=== PATIENT | female | born 1980 | race Caucasian/White ===

== ENCOUNTER 2024-12-19 04:10 | Inpatient (IN) | payer SELFPAY ==
[2024-12-19 04:14] VITALS: BP 143/84; PULSE 116; RESP 18; TEMP 36.8; O2SAT 95; BMI 41.1
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
[2024-12-19 04:43] LABS: Hematocrit 38.7 % (36-47); Hemoglobin 13.20 g/dL (11.27-16.99); Mean Corpuscular HGB Conc 34.1 g/dL (30-55); Mean Corpuscular Hemoglobin 27.4 pg (27-33); Mean Corpuscular Volume 80.3 fl (85-98); Nucleated Red Blood Cells % 0 %; Platelet Count 265 10^3/cmm (157-399); Red Blood Count 4.82 10^6/uL (3.85-5.65); White Blood Count 9.09 10^3/uL (3.29-11.43)
--- NOTE | 2024-12-19 04:43 | PC.NURSE ---
96 Hour Involuntary Hold Patient Rights have been reviewed with patient and a copy of the same has been provided to her. Pleat Patternmaker Naun was present at bedside during presentation of Rights.
[2024-12-19 05:03] LABS: Alanine Aminotransferase 22 U/L (0-33); Albumin Level 3.8 g/dL (3.5-5.2); Alkaline Phosphatase 77 U/L (35-105); Anion Gap 16.5 (5-19); Aspartate Amino Transferase 16 U/L (0-32); Blood Urea Nitrogen 14 mg/dL (6-20); Calcium 9.0 mg/dL (8.5-10.5); Carbon Dioxide 22 mmol/L (22-29); Chloride 108 mmol/L (98-107); Creatinine Clr Calc Pharmacy 157.4021; Globulin 3.0 g/dL (1.3-4.6); Glucose 118 mg/dL (65-115); Osmolality Calculated 298 mOsm/kg (285-295); Potassium 3.5 mmol/L (3.5-5.1); Salicylate 0.5 mg/dL (3-10); Sodium 143 mmol/L (136-145); Total Protein 6.8 g/dL (6.6-8.7)
[2024-12-19 05:12] LABS: Acetaminophen < 5.0 ug/mL (10-30)
[2024-12-19 05:30] VITALS: BP 129/82; PULSE 94; O2SAT 96
[2024-12-19 05:35] VITALS: BP 128/82; PULSE 94; O2SAT 96
[2024-12-19] MEDS: diphenhydrAMINE 50 mg/mL SDV 1mL IM (06:56)
[2024-12-19] MEDS: haloperidol inj 5 mg/mL INJ 1 mL IM (06:57)
[2024-12-19] MEDS: LORazepam 1 MG/0.5 ML injection 2 MG IM (06:59)
[2024-12-19 07:05] LABS: Alcohol Level < 10 mg/dL (0-10)
[2024-12-19 07:08] LABS: PCP Screen Urine Negative (Negative)
[2024-12-19 07:24] LABS: Glucose Urine UA Negative (Normal); Nitrate Urine Negative (Negative)
[2024-12-19 07:29] LABS: Add Urine Microscopic? YES
[2024-12-19 07:48] LABS: Specific Gravity, Urine 1.032 (1.005-1.030); UA Slide Review UA Slide Review Perf
--- NOTE | 2024-12-19 09:46 | PC.NURSE ---
Patient became agitated this morning during shift change. She was shaking her arms, yelling out and attempting to bang head on wall. Patient is requesting ativan, Klonopin and xanax. She states that she wants us to call [facility] and verify with them that she is a current customer there and received methadone. Spooke with Ernesto Medellin at [facility]. He verified that patients received methadone 110 mg daily and she had missed yesterday appointment. Patient received Haldol 5 mg IM and lorazepam 2 mg IM left upper deltoid and diphenhydramine 50 mg IM right upper deltoid. Patient tolerated well. Physician notified.
[2024-12-19 14:00] VITALS: BP 151/60; PULSE 116; RESP 16; TEMP 36.3; O2SAT 98
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
[2024-12-19 15:49] VITALS: RESP 18
--- NOTE | 2024-12-19 17:13 | PC.OT ---
HOLD OT EVALUATION DUE TO AGITATION; WILL ATTEMPT AGAIN AT LATER TIME.
[2024-12-19 19:59] VITALS: BP 105/58; PULSE 89; RESP 17; TEMP 36.8; O2SAT 96
--- NOTE | 2024-12-20 00:48 | PC.NURSE ---
pt needs shower/ may need a brief. pt denied both at this time. when she gets up will follow up.
[2024-12-20 05:04] VITALS: BP 127/62; PULSE 105; RESP 18; TEMP 37.3; O2SAT 96
[2024-12-20 14:00] VITALS: BP 135/79; PULSE 99; RESP 17; TEMP 37.3; O2SAT 96
--- NOTE | 2024-12-20 16:13 | P.NPUPN_ITS ---
Subjective NPU 2 Subjective: Patient presented today again lobbying to be discharged sooner rather than later. She continued to identify her son as a reason for her needing to leave now stating that his birthday is tomorrow and she even asked if there was a way she can do it they passed that she promises to return. We discussed the fact that she is on a 96-hour hold when she discharges she will then be able to not return unless she would desire to do so. We discussed the fact that this combination of medication is challenging and she did not identified which was confirmed that she takes Ambien for sleep on top of all of those things. Alluded to the fact that maybe she did not take all those medications all the time and handed to a nefarious possibility. However she reports that she is feeling better now that the methadone was restarted and reports that she had been off of her medication a little bit longer because of going to custodial briefly. She denied any side effects to the medication. Mental Status Exam 2 MSE Comments: This is an obese versus morbidly obese white female in hospital scrubs with poor grooming somewhat disheveled with appropriate eye contact. No abnormal movements except for psychomotor agitation. Somewhat cooperative with exam in mild to moderate distress. Speech was slightly increased rate and normal volume. Mood described as fine, affect congruent but slightly agitated. Thought process linear. Thought content: Patient denies suicidal or homicidal ideation, there were no delusions reported or noted, she denied any auditory or visual hallucinations. Attention and concentration were mostly intact and memory was intermittently reliable with moments that she was clearly misrepresenting facts, but no more formally tested. She is alert and oriented x 3. Insight, judgment and impulse control are impaired. Vitals/I&O/Wt Last Vital Signs Temp 99.2 F 12/20/24 14:00 Pulse 99 12/20/24 14:00 Resp 17 12/20/24 14:00 BP 135/79 12/20/24 14:00 Pulse Ox 96 12/20/24 14:00 O2 Del Method Room Air 12/20/24 14:00 Weight last 48 hrs Weight 104.326 kg Data NPU 12/19/24 04:34 12/19/24 04:34 A&P Assessment and plan 1. Suicidal ideation: 2. Benzodiazepine abuse: 3. Polypharmacy: 4. Opioid use disorder, severe, on maintenance therapy, dependence: 5. Generalized anxiety disorder: 6. Depression: Plan: This is a 44-year-old white female with a long history of mental health and addiction issues who presents on a concerning cocktail of medications including benzodiazepines, stimulants and methadone on a 96-hour hold denying it need to be here and being a resistant historian. 1. Continue current medication. Except will not be restarting benzodiazepines or stimulants. Will restart methadone and try to get to the bottom of her prescribing situation. Restarted Ambien nightly. 2. Continue every 15 minute checks for safety. 3. Encourage individual, group and milieu therapy. 4. Encourage sober living treatment after discharge at the highest level of care to which she is willing to commit. 5. Obtain collateral information. 6. Evaluate against the backdrop of the 96-hour hold. PDMP PDMP Reviewed: Not Reviewed Involuntary Hold Information 2 Hold Status: Legal Status: 96 Hour Hold Date/Time Hold Expires: 12/25/24 @ 04:25 Attestations NPU 2 Medical Necessity Statement*: Inpatient hospitalization is medically necessary and the clinically appropriate intervention at this time. We will monitor/initiate medications and make changes as indicated. Likely length of stay 4-6 days. Coding Level of Care Code Acute Code for [facility] Fwd Diagnoses Suicidal ideation R45.851 Benzodiazepine abuse F13.10 Polypharmacy Z79.899 Opioid use disorder, severe, on maintenance therapy, dependence F11.20 Generalized anxiety disorder F41.1 Depression F32.A
[2024-12-20] MEDS: LORazepam 1 MG/0.5 ML injection 2 MG IM (18:16)
[2024-12-20] MEDS: diphenhydrAMINE 50 mg/mL SDV 1mL IM (18:16)
[2024-12-20] MEDS: haloperidol inj 5 mg/mL INJ 1 mL IM (18:17)
[2024-12-20 19:36] VITALS: BP 153/81; PULSE 100; RESP 18; TEMP 37.2; O2SAT 97
[2024-12-20 21:07] VITALS: BP 153/81
--- NOTE | 2024-12-20 22:06 | PC.NURSE ---
HOME MEDICATIONS Dr. Slaughter gave this nurse a verbal order to restart pts home medications, 10mg Ambien PO and 0.2mg Clonidine PO order
[2024-12-21 06:00] VITALS: BP 112/72; PULSE 69; RESP 18; TEMP 37.2; O2SAT 98
--- NOTE | 2024-12-21 10:11 | PC.NURSE ---
Pt is riddled with anxiety, worried about her son at home, unable to cope with the situation. Pt is encouraged by nursing staff to use her coping skills. All pt's needs are met at this time.
--- NOTE | 2024-12-21 13:19 | P.NPUPN_ITS ---
Subjective NPU 2 Subjective: Patient presented today reporting that she is doing better once again lobbying to be discharged today. We continue to discussed the need to connect with her case packer and sealer and make sure her outpatient team is aware of the concerns about her current medication regimen and concerns about addiction and how it might be impacting her pursuit of medication as well as her current prescriptions. She denied any side effects to the medications she has been prescribed and we discussed the likelihood of discharge in the next 48 hours. Mental Status Exam 2 MSE Comments: This is an obese versus morbidly obese white female in hospital scrubs with poor grooming somewhat disheveled with appropriate eye contact. No abnormal movements except for psychomotor agitation. Somewhat cooperative with exam in mild to moderate distress. Speech was slightly increased rate and normal volume. Mood described as fine, affect congruent but slightly agitated. Thought process linear. Thought content: Patient denies suicidal or homicidal ideation, there were no delusions reported or noted, she denied any auditory or visual hallucinations. Attention and concentration were mostly intact and memory was intermittently reliable with moments that she was clearly misrepresenting facts, but no more formally tested. She is alert and oriented x 3. Insight, judgment and impulse control are impaired. Vitals/I&O/Wt Last Vital Signs Temp 98.4 F 12/21/24 14:00 Pulse 100 12/21/24 14:00 Resp 16 12/21/24 14:00 BP 140/68 12/21/24 14:00 Pulse Ox 96 12/21/24 14:00 O2 Del Method Room Air 12/21/24 14:00 Weight last 48 hrs Weight 104.326 kg Data NPU 12/19/24 04:34 12/19/24 04:34 A&P Assessment and plan 1. Suicidal ideation: 2. Benzodiazepine abuse: 3. Polypharmacy: 4. Opioid use disorder, severe, on maintenance therapy, dependence: 5. Generalized anxiety disorder: 6. Depression: Plan: This is a 44-year-old white female with a long history of mental health and addiction issues who presents on a concerning cocktail of medications including benzodiazepines, stimulants and methadone on a 96-hour hold denying it need to be here and being a resistant historian. 1. Continue current medication. Except will not be restarting benzodiazepines or stimulants. Will restart methadone and try to get to the bottom of her prescribing situation. Restarted Ambien nightly. 2. Continue every 15 minute checks for safety. 3. Encourage individual, group and milieu therapy. 4. Encourage sober living treatment after discharge at the highest level of care to which she is willing to commit. 5. Obtain collateral information. 6. Evaluate against the backdrop of the 96-hour hold. PDMP PDMP Reviewed: Not Reviewed Involuntary Hold Information 2 Hold Status: Legal Status: 96 Hour Hold Date/Time Hold Expires: 12/25/24 @ 04:25 Attestations NPU 2 Medical Necessity Statement*: Inpatient hospitalization is medically necessary and the clinically appropriate intervention at this time. We will monitor/initiate medications and make changes as indicated. Likely length of stay 2-4 days. Coding Level of Care Code Acute Code for [facility] Fwd Diagnoses Suicidal ideation R45.851 Benzodiazepine abuse F13.10 Polypharmacy Z79.899 Opioid use disorder, severe, on maintenance therapy, dependence F11.20 Generalized anxiety disorder F41.1 Depression F32.A
[2024-12-21 14:00] VITALS: BP 140/68; PULSE 100; RESP 16; TEMP 36.9; O2SAT 96
[2024-12-21 20:39] VITALS: BP 126/76
[2024-12-21 22:00] VITALS: BP 126/76; PULSE 86; RESP 18; TEMP 37.1; O2SAT 95
[2024-12-22 06:00] VITALS: BP 109/55; PULSE 74; RESP 18; O2SAT 96
--- NOTE | 2024-12-22 11:16 | PC.NURSE ---
prn Vistaril 50 mg given po per pt c/o stated anxiety. requesting haldol by name, staff suggested to take vistaril first for anxiety, agreed to take Vistaril at this time
--- NOTE | 2024-12-22 13:43 | P.NPUPN_ITS ---
Subjective NPU 2 Subjective: Patient presented today reporting that things are going fine. She identifies once again and interested in leaving and we discussed making sure she has Medicaid in place tomorrow as well as hearing back about collateral information obtained from her [facility] inside phone sales as far as what they would recommend with her going forward. We continued discussing the concerns of mixing benzodiazepines with her methadone. We discussed working with her for appropriate discharge planning over the next 48 hours. Mental Status Exam 2 MSE Comments: This is an obese versus morbidly obese white female in hospital scrubs with poor grooming somewhat disheveled with appropriate eye contact. No abnormal movements except for psychomotor agitation. Somewhat cooperative with exam in mild to moderate distress. Speech was slightly increased rate and normal volume. Mood described as better, affect congruent but slightly less agitated. Thought process linear. Thought content: Patient denies suicidal or homicidal ideation, there were no delusions reported or noted, she denied any auditory or visual hallucinations. Attention and concentration were mostly intact and memory was intermittently reliable with moments that she was clearly misrepresenting facts, but no more formally tested. She is alert and oriented x 3. Insight, judgment and impulse control are impaired. Vitals/I&O/Wt Last Vital Signs Temp 98.8 F 12/21/24 22:00 Pulse 74 12/22/24 06:00 Resp 18 12/22/24 06:00 BP 109/55 12/22/24 06:00 Pulse Ox 96 12/22/24 06:00 O2 Del Method Room Air 12/22/24 06:00 12/21/24 12/22/24 12/22/24 22:59 06:59 14:59 Intake Total 0 / 0 Balance 0 / 0 Weight last 48 hrs Weight 104.326 kg Data NPU 12/19/24 04:34 12/19/24 04:34 A&P Assessment and plan 1. Suicidal ideation: 2. Benzodiazepine abuse: 3. Polypharmacy: 4. Opioid use disorder, severe, on maintenance therapy, dependence: 5. Generalized anxiety disorder: 6. Depression: Plan: This is a 44-year-old white female with a long history of mental health and addiction issues who presents on a concerning cocktail of medications including benzodiazepines, stimulants and methadone on a 96-hour hold denying it need to be here and being a resistant historian. 1. Continue current medication. Except will not be restarting benzodiazepines or stimulants. Will restart methadone and try to get to the bottom of her prescribing situation. Restarted Ambien nightly. 2. Continue every 15 minute checks for safety. 3. Encourage individual, group and milieu therapy. 4. Encourage sober living treatment after discharge at the highest level of care to which she is willing to commit. 5. Obtain collateral information. 6. Evaluate against the backdrop of the 96-hour hold. PDMP PDMP Reviewed: Not Reviewed Involuntary Hold Information 2 Hold Status: Legal Status: 96 Hour Hold Date/Time Hold Expires: 12/25/24 @ 04:25 Attestations NPU 2 Medical Necessity Statement*: Inpatient hospitalization is medically necessary and the clinically appropriate intervention at this time. We will monitor/initiate medications and make changes as indicated. Likely length of stay 1-3 days. Coding Level of Care Code Acute Code for [facility] Fwd Diagnoses Suicidal ideation R45.851 Benzodiazepine abuse F13.10 Polypharmacy Z79.899 Opioid use disorder, severe, on maintenance therapy, dependence F11.20 Generalized anxiety disorder F41.1 Depression F32.A
[2024-12-22 14:00] VITALS: BP 172/92; PULSE 100; RESP 17; TEMP 37.3; O2SAT 98
--- NOTE | 2024-12-22 14:08 | PC.NURSE ---
PRN HALDOL 5 MG GIVEN PO PER PT C/O ANXIETY ASKING FOR HALDOL BY NAME
[2024-12-22 19:56] VITALS: BP 154/92; PULSE 100; RESP 16; TEMP 37.3; O2SAT 93
[2024-12-22 20:05] VITALS: BP 154/91
--- NOTE | 2024-12-23 04:56 | PC.NURSE ---
SHIFT SUMMARY PATIENT HAS RESTED THIS NIGHT WITHOUT S/S OF DISTRESS NOTED.
[2024-12-23 06:00] VITALS: BP 102/66; PULSE 86; RESP 16; TEMP 36.7; O2SAT 94
[2024-12-23 08:27] VITALS: RESP 18
[2024-12-23 12:58] VITALS: BP 136/87; PULSE 100; RESP 22; TEMP 37.1; O2SAT 94
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
[2024-12-23 15:14] VITALS: RESP 18
[2024-12-23 15:24] VITALS: BP 136/87; PULSE 22; RESP 100; TEMP 37.1; O2SAT 94
== END 2024-12-23 15:25 | disposition home or self-care (01) | DRG 897 ==
LOC: ER 04:54 → NP 05:02
PROVIDERS: Admitting Provider Psychiatry & Neurology Psychiatry; Emergency Provider Family Medicine; Visit Provider Psychiatry & Neurology Psychiatry
DX: F13.10 Sedative, hypnotic or anxiolytic abuse, uncomplicated (principal); R45.851 Suicidal ideations; Z68.41 Body mass index [BMI] 40.0-44.9, adult; F11.20 Opioid dependence, uncomplicated; E66.01 Morbid (severe) obesity due to excess calories; F41.1 Generalized anxiety disorder; G47.00 Insomnia, unspecified; Z63.0 Problems in relationship with spouse or partner; F32.A Depression, unspecified; Z79.899 Other long term (current) drug therapy
CPT/HCPCS: 36415; 80053; 80306; 80307; 81001; 85025; 96372; 97150; 97165; 99285; J1200; J1630; J2060; J9999

== ENCOUNTER 2024-12-27 09:21 | Inpatient (IN) | payer OTHER, SELFPAY ==
--- OUTSIDE RECORDS SUMMARY | 2013-07-14 03:37 | XMS_ITS | Continuity of Care Document ---
Author Organization DONTA Fritz Address [address] [place] [address] Phone Care Team Providers Care Baker Paint Name Role Phone Unavailable Unavailable Unavailable Procedures Procedure Date Offic/outpt E&m Estab Mod-hi 2 07 Offic/outpt E&m Estab Mod-hi 2 07 Offic/outpt E&m Estab Mod-hi 2 07 Offic/outpt E&m Estab Mod-hi 2 07 Subsqt Hosp-da E&m Minr Compl 6 Init Inpt Cons New/estab Mod 5 06 Advance Directives Directive Yes / No Effective Date File Name No Information Encounters Encounter Description Practice Location Reason(s) For Visit Diagnoses Date Provider Providers Copied on Encounter DONTA Fritz, [address], [place], [place], [id number], tel:[phone] [facility] No Information 1 4 No Information Referring Provider: Shauna Arteaga MD, [address], [address]. tel:[phone] Offic/outpt E&m Estab Mod-hi 2 DONTA Fritz, [address], [place], [address], tel:[phone] [facility] No Information 7 [facility]. [address], [address], [place], [address], [place]. tel:[phone] Referring Provider: Shauna Arteaga MD, [address], [address]. tel:[phone] Offic/outpt E&m Estab Mod-hi 2 Lam, [facility], [address], [place], [address], [place] tel:[phone] [facility] No Information 7 Sandy [employer]ICAL [employer]ACH[employer]IC[employer] Erv. [address], [place], [address], [place]. tel:[phone] Referring Provider: Shauna Arteaga MD, [address], [address]. 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 [address], [address], [place], [address], [place]. tel:[phone] Referring Provider: Shauna Arteaga MD, [address], [address]. tel:[phone] Offic/outpt E&m Estab Mod-hi 2 Lam, [facility], [address] [facility] [address], [place], [address], [place] tel:[phone] [facility] No Information Luciano Nunn. [address], [address], [place], [address], [place]. tel:[phone] Referring Provider: Shauna Arteaga MD, [address], [address]. tel:[phone] Subsqt Hosp-da E&m Minr Compl Lam, [facility], [address], [place], [place], [address], [place] tel:[phone] [facility] - [facility] No Information 6 Tomshine Arline. [address], [address], [place], [address], [place]. tel:[phone] Referring Provider: Shauna Arteaga MD, [address], [address]. tel:[phone] Init Inpt Cons New/estab Mod 5 Lam, [facility], [address], [place], [place], [address], [place] tel:[phone] [facility] - [place] No Information 6 Tomshine Arline. [address], [place], [address], [place]. tel:[phone] Referring Provider: Shauna Arteaga MD, [address], [address]. tel:[phone] Family History Family Member Type Diagnosis Age At Onset No Information Payers Payer name Insurance type Covered constitution party ID Shamika catalan(s) Medical Assistance [facility] [id number] Social History Type Description Quantity Date Captured Comments Sex Female Smoking Status No Information Chief Complaint And Reason For Visit No Information Reason For Referral Reason For Referral No Information History Of Present Illness Encounter Date Complaint History Of Prese nt Illness No Information Functional Status Date Functional Assessmen t No Information Instructions Date Instruction Additional Infor mation No Information Assessments Type Assessment Date No Information Patient Care Teams Name Effective Dates (start - stop) Status Members No Information
[2024-12-27] VITALS (7 sets, daily range): BP systolic 100–152; BP diastolic 65–101; PULSE 90–110; RESP 16–22; TEMP 36.5–36.8; O2SAT 95–100
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
--- NOTE | 2024-12-27 09:29 | ECG_ITS ---
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 Measurements Intervals [place] Rate: 107 P: 58 NM: 133 QRS: 44 QRSD: 89 T: 26 QT: 339 QTc: 453 Interpretive Statements SINUS TACHYCARDIA NONSPECIFIC ST & T-WAVE ABNORMALITY ABNORMAL RHYTHM ECG No previous ECG available for comparison Electronically Signed On 12-27-2024 20:33:01 CDT by Sree Betts M.D. [email or web address]
[2024-12-27 09:36] LABS: Hematocrit 40.9 % (36-47); Hemoglobin 13.90 g/dL (11.27-16.99); Mean Corpuscular HGB Conc 34.0 g/dL (30-55); Mean Corpuscular Hemoglobin 27.2 pg (27-33); Mean Corpuscular Volume 80.0 fl (85-98); Nucleated Red Blood Cells % 0 %; Platelet Count 297 10^3/cmm (157-399); Red Blood Count 5.11 10^6/uL (3.85-5.65); White Blood Count 6.11 10^3/uL (3.29-11.43)
--- NOTE | 2024-12-27 09:38 | XRR_ITS ---
PROCEDURE INFORMATION: Exam: XR Chest Exam date and time: 12/27/2024 9:47 AM Age: 44 years old Clinical indication: Dyspnea; Additional info: Dyspnea/cough TECHNIQUE: Imaging protocol: Radiologic exam of the chest. Views: 1 view. COMPARISON: No relevant prior studies available. FINDINGS: Tubes, catheters and devices: EKG leads. Lungs: Unremarkable. No consolidation. Pleural spaces: Unremarkable. No pleural effusion. No pneumothorax. Heart/Mediastinum: Unremarkable. No cardiomegaly. Vasculature: Aortic tortuosity without suspected aneurysm. Bones/joints: Unremarkable. XR/XR chest 1V portable [id number] IMPRESSION: No evidence of acute cardiopulmonary pathology.
--- NOTE | 2024-12-27 09:39 | CTR_ITS ---
PROCEDURE INFORMATION: Exam: CT Head Without Contrast Exam date and time: 12/27/2024 10:13 AM Age: 44 years old Clinical indication: Altered mental status/memory loss; Additional info: AMS TECHNIQUE: Imaging protocol: Computed tomography of the head without contrast. Radiation optimization: All CT scans at this facility use at least one of these dose optimization techniques: automated exposure control; mA and/or kV adjustment per patient size (includes targeted exams where dose is matched to clinical indication); or iterative reconstruction. COMPARISON: No relevant prior studies available. RADIATION DOSE METRICS: Total DLP (mGy-cm): 1148.64 FINDINGS: Brain: Normal. No hemorrhage. Unremarkable white matter. No mass effect. Cerebral ventricles: No ventriculomegaly. Paranasal sinuses: Visualized sinuses are unremarkable. No fluid levels. Mastoid air cells: Visualized mastoid air cells are well aerated. Bones: Unremarkable. No acute fracture. Soft tissues: Unremarkable. CT/CT head wo con* [id number] IMPRESSION: Unremarkable noncontrast head CT.
[2024-12-27 09:56] LABS: Alanine Aminotransferase 33 U/L (0-33); Albumin Level 4.1 g/dL (3.5-5.2); Alkaline Phosphatase 89 U/L (35-105); Anion Gap 18.4 (5-19); Aspartate Amino Transferase 25 U/L (0-32); Blood Urea Nitrogen 13 mg/dL (6-20); Calcium 9.5 mg/dL (8.5-10.5); Carbon Dioxide 20 mmol/L (22-29); Chloride 107 mmol/L (98-107); Creatinine Clr Calc Pharmacy 93.8947; Globulin 3.3 g/dL (1.3-4.6); Glucose 103 mg/dL (65-115); Osmolality Calculated 294 mOsm/kg (285-295); Potassium 3.4 mmol/L (3.5-5.1); Salicylate 1.6 mg/dL (3-10); Sodium 142 mmol/L (136-145); Total Protein 7.4 g/dL (6.6-8.7)
[2024-12-27 09:58] LABS: Acetaminophen < 5.0 ug/mL (10-30); Alcohol Level < 10 mg/dL (0-10)
[2024-12-27 10:10] LABS: PCP Screen Urine Negative (Negative)
[2024-12-27 10:11] LABS: ABG PCO2 39.5 mmHg (35-45); ABG PH Result 7.36 (7.35-7.45); Alveolar-Arterial Oxygen Gradi 4.1 mmHg (5-10); Arterial Blood Gas Hematocrit 43.8 % (37-47); Blood Gas Operator Identificat AMH; Blood Gas Sample Site Brachial, right; Blood Gas Sample Type Arterial; Carboxyhemoglobin 1.2 %THgb (0.4-20.1); Glucose Level-ABG 100.0 mg/dL (70-115); HCO3 ABG 22.4 mmol/L (22-26); Ionized Calcium Level - ABG 1.2 mmol/L (1.1-1.4); Methemoglobin 0.7 % (0.4-1.5); Oxygen Saturation ABG 95.2; PO2 ABG 69.5 mmHg (80.0-100.0); PO2 FiO2 Ratio Arterial Blood 330; Potassium Level - ABG 3.5 mmol/L (3.5-5.0); Sodium Level - ABG 143.0 mmol/L (131-143)
[2024-12-27] MEDS: LORazepam 1 MG/0.5 ML injection IVP (11:29)
[2024-12-27] MEDS: LORazepam 1 MG/0.5 ML injection 2 MG IVP (11:55)
--- NOTE | 2024-12-27 12:21 | PC.NURSE ---
While in the room with the pt, the pt stated that she was having hallucinations and that she thought she was in [place] not in [place]. Pt also stated that she took fentanyl and meth this morning.
--- NOTE | 2024-12-27 12:53 | PC.NURSE ---
pt was read her 96 hour hold rights. security was present
[2024-12-28 06:00] VITALS: BP 121/78; PULSE 99; RESP 18; TEMP 37.4; O2SAT 99
--- NOTE | 2024-12-28 07:49 | PC.NURSE ---
Addendum entered by Disha Scott LPN 12/28/24 09:09: prn med effective no further c/o anxiety. pt asleep in bed in room, snoring. resp even et unlabored Original Note: prn Vistaril 50 mg given po per pt c/o stated anxiety. no outward s/s of anxiety noted. pt med seeking for any and all prn meds she can have
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
--- NOTE | 2024-12-28 12:17 | PC.NURSE ---
prn haldol 5 mg given po per pt c/o stated anxiety/agitation. med seeking
[2024-12-28 14:00] VITALS: BP 132/83; PULSE 103; RESP 17; TEMP 37.4; O2SAT 97
--- NOTE | 2024-12-28 15:55 | PC.NURSE ---
PRN VISTARIL 50 MG GIVEN PO PER PT C/O STATED ANXIETY. NO OUTWARD S/SO OF ANXIETY NOTED, MED SEEKING BEHAVIORS NOTED. PATIENT WAS PREVIOUSLY VISITING IN DAY ROOM, SMILING AND LAUGHING WITH VISITOR. SOON VISITOR LEFT UNIT, PATIENT UP TO DESK C/O ANXIETY
[2024-12-28 20:02] VITALS: BP 116/68; PULSE 103; RESP 18; TEMP 37.1; O2SAT 97
[2024-12-29 06:00] VITALS: BP 120/70; PULSE 72; RESP 18; TEMP 37.2; O2SAT 97
[2024-12-29 08:00] VITALS: RESP 18
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
[2024-12-29 14:00] VITALS: BP 113/71; PULSE 92; RESP 18; TEMP 37.1; O2SAT 95
[2024-12-29 20:30] VITALS: BP 138/89; PULSE 106; RESP 19; TEMP 37; O2SAT 97
[2024-12-30 05:21] VITALS: BP 99/65; PULSE 97; RESP 18; TEMP 36.9; O2SAT 93
[2024-12-30] MEDS: diphenhydrAMINE 50 mg/mL SDV 1mL IM ×2 (07:37→21:33)
[2024-12-30] MEDS: LORazepam 1 MG/0.5 ML injection 2 MG IM ×2 (07:37→21:28)
--- NOTE | 2024-12-30 07:43 | PC.NURSE ---
Pt came to the nurses station stating she has diarrhea and it is a lot and straight water. I gave pt Pepto (see MAR). She shortly came up and asked for a shot for anxiety. She stated that she was really having a hard time, especially with all the diarrhea. She had already has a PO Haldol and wasn't getting any effects from it. After talking with Apple ZHENG we decided to give Ativan 2mg IM and Benadryl 50mg IM since pt is having so much diarrhea. She also didn't sleep much last night. It was felt this would absorb better and help her longer.
[2024-12-30 08:13] VITALS: RESP 18
--- NOTE | 2024-12-30 09:24 | NUR.SHIFT ---
Pt states that she didn't sleep good last night. She has had watery diarrhea all morning again. She has already received pepto (see mar)She became very anxious and then recieved some injections. She rates her anxiety a 5/10 and Depression 0/10. No reports of SI/HI or hallucinations. No pain reported. She was cooperative for assessment.
--- NOTE | 2024-12-30 13:50 | P.NPUPN_ITS ---
Subjective NPU 2 Subjective: Patient presented today reporting that she is feeling better. We discussed her continued concerns about her addictive behaviors and different story lines for what has occurred. She continues to endorse a plan to move home to [place] at the first opportunity she has 2 get her things and go. We discussed the importance of continued treatment for both her mental health and addiction issues. She denied any side effects to her medication. Mental Status Exam 2 MSE Comments: This is an obese versus morbidly obese white female in hospital scrubs adequate grooming and appropriate eye contact. No abnormal movements except for mild psychomotor agitation. Mostly cooperative with exam in mild distress. Speech was slightly increased rate and normal volume. Mood described as I rather go today but I am glad that I will be leaving, affect congruent. Thought process linear. Thought content: Patient denies suicidal or homicidal ideation, there were no delusions reported or noted, she denied any auditory or visual hallucinations. Attention and concentration were mostly intact and memory was intermittently reliable with moments that she was clearly misrepresenting facts, but none were formally tested. She is alert and oriented x 3. Insight, judgment and impulse control are impaired. Vitals/I&O/Wt Last Vital Signs Temp 98.5 F 12/30/24 19:50 Pulse 95 12/30/24 19:50 Resp 18 12/30/24 19:50 BP 118/83 12/30/24 19:50 Pulse Ox 98 12/30/24 19:50 O2 Del Method Room Air 12/30/24 19:50 Data NPU 12/27/24 09:31 12/27/24 09:31 A&P Assessment and plan 1. Suicidal ideation: 2. Benzodiazepine abuse: 3. Polypharmacy: 4. Opioid use disorder, severe, on maintenance therapy, dependence: 5. Generalized anxiety disorder: 6. Depression: Plan: This is a 44-year-old white female with a long history of mental health and addiction issues who was just discharged on 12/23/2024 with similar concerns and presents again on a concerning cocktail of medications including benzodiazepines, stimulants and methadone as she was not continued on her last hospitalization with those medications but does have prescriptions for them in the pharmacy again on a 96-hour hold denying it need to be here and being a resistant historian. 1. Continue current medication as she was discharged on on 12/23/2024. 2. Continue every 15 minute checks for safety. 3. Encourage individual, group and milieu therapy. 4. Encourage sober living treatment after discharge at the highest level of care to which she is willing to commit. 5. Obtain collateral information. 6. Evaluate against the backdrop of the 96-hour hold. Tentative plan for discharge tomorrow. PDMP PDMP Reviewed: Not Reviewed Involuntary Hold Information 2 Hold Status: Legal Status: 96 Hour Hold Date/Time Hold Expires: 0 01/02/25@00:01 Attestations NPU 2 Medical Necessity Statement*: Inpatient hospitalization is medically necessary and the clinically appropriate intervention at this time. We will monitor/initiate medications and make changes as indicated. Likely length of stay 1-3 days. Coding Level of Care Code Acute Code for [facility] Fwd Diagnoses Suicidal ideation R45.851 Benzodiazepine abuse F13.10 Polypharmacy Z79.899 Opioid use disorder, severe, on maintenance therapy, dependence F11.20 Generalized anxiety disorder F41.1 Depression F32.A
[2024-12-30 14:00] VITALS: BP 113/77; PULSE 94; RESP 18; TEMP 36.7; O2SAT 99
[2024-12-30 19:50] VITALS: BP 118/83; PULSE 95; RESP 18; TEMP 36.9; O2SAT 98
[2024-12-30] MEDS: haloperidol inj 5 mg/mL INJ 1 mL IM (21:30)
[2024-12-31 06:00] VITALS: BP 112/72; PULSE 68; RESP 18; TEMP 36.9; O2SAT 98
[2024-12-31 08:05] VITALS: RESP 18
--- NOTE | 2024-12-31 08:33 | W.PM.NPUDCS ---
Diagnoses at Discharge Discharge Diagnosis 1. Suicidal ideation: 2. Benzodiazepine abuse: 3. Polypharmacy: 4. Opioid use disorder, severe, on maintenance therapy, dependence: 5. Generalized anxiety disorder: 6. Depression: Reason for Visit Reason for Visit: ams Involuntary Hold Information Hold Status: Legal Status: 96 Hour Hold Date/Time Hold Expires: 01/02/25@00:01 Mental Status Exam MSE Comments: This is an obese versus morbidly obese white female in hospital scrubs adequate grooming and appropriate eye contact. No abnormal movements except for mild psychomotor agitation. Mostly cooperative with exam in mild distress. Speech was slightly increased rate and normal volume. Mood described as I rather go today but I am glad that I will be leaving, affect congruent. Thought process linear. Thought content: Patient denies suicidal or homicidal ideation, there were no delusions reported or noted, she denied any auditory or visual hallucinations. Attention and concentration were mostly intact and memory was intermittently reliable with moments that she was clearly misrepresenting facts, but none were formally tested. She is alert and oriented x 3. Insight, judgment and impulse control are impaired. Discharge Data Studies Completed and Pending: Completed Studies During Hospitalization Category Date Time Status CT head wo con* [id number] Stat Cat Scan 12/27/24 09:39 Completed XR chest 1V anay ble [id number] Stat Exams 12/27/24 09:38 Completed Radiology Impressions Chest X-Ray 12/27/24 09:38 IMPRESSION: No evidence of acute cardiopulmonary pathology. Head CT 12/27/24 09:39 IMPRESSION: Unremarkable noncontrast head CT. Laboratory Results WBC 6.11 10^3/uL (3.2 9-11.43) 12/27/24 09:31 RBC 5.11 10^6/uL (3.8 5-5.65) 12/27/24 09:31 Hgb 13.90 g/dL (11.27 -16.99) 12/27/24 09:31 Hct 40.9 % (36-47) 12/27/24 09:31 MCV 80.0 fl (85-98) L 12/27/24 09:31 MCH 27.2 pg (27-33) 12/27/24 09:31 MCHC 34.0 g/dL (30-55) 12/27/24 09:31 RDW 14.5 % (12.1-15.1 ) 12/27/24 09:31 Plt Count 297 10^3/cmm (157 -399) 12/27/24 09:31 MPV 9.8 fL (7.4-10.4) 12/27/24 09:31 Neut % (Auto) 50.1 % 12/27/24 09: Lymph % (Auto) 35.4 % 12/27/24 09:31 Grimes % (Auto) 9.7 % 12/27/24 09:31 Eos % (Auto) 4.3 % 12/27/24 09:31 Baso % (Auto) 0.3 % 12/27/24 09: Neut # (Auto) 3.07 10^3/uL (1.8 -7.7) 12/27/24 09: Lymph # (Auto) 2.2 10^3/uL (0.8- 4.8) 12/27/24 09:31 Grimes # (Auto) 0.6 10^3/uL (0.2- 0.9) 12/27/24 09: Eos # (Auto) 0.3 10^3/uL (0.0- 0.8) 12/27/24 09: Baso # (Auto) 0.0 10^3/uL (0.0- 0.1) 12/27/24 09: Nucleated RBC % (a uto) 0 % 12/27/24 09: Nucleated RBCs # 0.0 /100WBC 12/27/24 09:31 Specimen Type Arterial 12/27/24 09:59 Sample Site Brachial, right 12/27/24 09:59 ABG pH 7.36 (7.35-7.45) 12/27/24 09:59 ABG pCO2 39.5 mmHg (35-45) 12/27/24 09:59 ABG pO2 69.5 mmHg (80.0-1 00.0) L 12/27/24 09:59 ABG PO2/FiO2 Ratio 330 12/27/24 09:59 ABG HCO3 22.4 mmol/L (22-2 6) 12/27/24 09:59 ABG O2 Saturation 95.2 12/27/24 09:59 ABG Base Excess -2.8 mmol/L (-2.0 -2.0) L 12/27/24 09:59 Nathan Test N/a 12/27/24 09:59 A-a O2 Gradient 4.1 mmHg (5-10) L 12/27/24 09:59 Hematocrit 43.8 % (37-47) 12/27/24 09:59 Hgb O2 Saturation 93.3 % (95-100) L 12/27/24 09:59 Carboxyhemoglobin 1.2 %THgb (0.4-20 .1) 12/27/24 09:59 Methemoglobin 0.7 % (0.4-1.5) 12/27/24 09:59 Total Hemoglobin 14.3 g/dL (12-16) 12/27/24 09:59 Sodium 143.0 mmol/L (131 -143) 12/27/24 09:59 Potassium 3.5 mmol/L (3.5-5 .0) 12/27/24 09:59 Glucose 100.0 mg/dL (70-1 15) 12/27/24 09:59 Ionized Calcium 1.2 mmol/L (1.1-1 .4) 12/27/24 09:59 O2 Delivery Device Room air 12/27/24 09:59 FiO2 21.0 % 12/27/24 09:59 Gun Mechanic ID Amh 12/27/24 09:59 Sodium 142 mmol/L (136-1 45) 12/27/24 09:31 Potassium 3.4 mmol/L (3.5-5 .1) L 12/27/24 09:31 Chloride 107 mmol/L (98-10 7) 12/27/24 09:31 Carbon Dioxide 20 mmol/L (22-29) L 12/27/24 09:31 Anion Gap 18.4 (5-19) 12/27/24 09:31 BUN 13 mg/dL (6-20) 12/27/24 09:31 Creatinine 0.8 mg/dL (0.5-0. 9) 12/27/24 09:31 GFR Calculation 77.2 mL/min (90-1 30) L 12/27/24 09:31 Glucose 103 mg/dL (65-115 ) 12/27/24 09:31 Calculated Osmolal ity 294 mOsm/kg (285- 295) 12/27/24 09:31 Calcium 9.5 mg/dL (8.5-10 .5) 12/27/24 09:31 Total Bilirubin 0.6 mg/dL (0.15-1 .2) 12/27/24 09:31 AST 25 U/L (0-32) 12/27/24 09:31 ALT 33 U/L (0-33) 12/27/24 09:31 Alkaline Phosphata se 89 U/L (35-105) 12/27/24 09:31 Total Protein 7.4 g/dL (6.6-8.7 ) 12/27/24 09:31 Albumin 4.1 g/dL (3.5-5.2 ) 12/27/24 09:31 Globulin 3.3 g/dL (1.3-4.6 ) 12/27/24 09:31 Salicylates 1.6 mg/dL (3-10) L 12/27/24 09:31 Urine Opiates Scre en Negative ng/mL (N egative) 12/27/24 09:50 Acetaminophen < 5.0 ug/mL (10-3 0) L 12/27/24 09:31 Ur Barbiturates Sc reen Negative ng/mL (N egative) 12/27/24 09:50 Ur Phencyclidine S crn Negative ng/mL (N egative) 12/27/24 09:50 Ur Amphetamines Sc reen Positive ng/mL (N egative) H 12/27/24 09:50 U Benzodiazepines Scrn Positive ng/mL (N egative) H 12/27/24 09:50 Urine Cocaine Scre en Negative ng/mL (N egative) 12/27/24 09:50 U Marijuana (THC) Screen Negative ng/mL (N egative) 12/27/24 09:50 Ethyl Alcohol < 10 mg/dL (0-10) 12/27/24 09:31 Vitals: Last Vital Signs Temp 98.4 F 12/31/24 06:00 Pulse 68 12/31/24 06:00 Resp 18 12/31/24 08:05 BP 112/72 12/31/24 06:00 Pulse Ox 98 12/31/24 06:00 O2 Del Method Room Air 12/31/24 06:00 Discharge Plan Discharge Patient Disposition: Home Condition: Stable Prescriptions: Continued clonidine HCl 0.1 mg Tablet 0.3 mg PO BEDTIME 30 Days Qty: 90 1RF olanzapine 5 mg Tablet,Disintegrating 5 mg PO DAILY PRN (Reason: Agitation/Psychosis) 30 Days Qty: 30 1RF hydroxyzine pamoate 25 mg Capsule 50 mg PO Q6H PRN (Reason: Anxiety) 30 Days Qty: 120 1RF zolpidem [Ambien] 10 mg Tablet 10 mg PO BEDTIME PRN (Reason: Insomnia) 30 Days Qty: 30 1RF methadone 10 mg Tablet 110 mg PO DAILY Qty: 1 0RF Rx Instructions: will be given by [facility] Discontinued Adderall XR capsule 30 mg PO BID ziprasidone HCl 40 mg Capsule 40 mg PO 0700,1700 PRN (Reason: extreme anxiety/agitation) 30 Days Qty: 60 1RF Discharge Order = DC NOW: Discharge Order (Routine); Ordered 12/31/24 Ordered By: Darvin Slaughter Referrals: [facility] [Outside] - 01/05/25 11:00 am Referral Note: Hospital follow up with Christine Silva Discharge Diet: Regular Discharge Activity: Resume usual activity Patient Instructions: Opioid Safety, Patient Portal & Toni Instructions Discharge Attestations NPU Time Spent in Discharge Care*: less than 30 min Specific Discharge Activities: Specific discharge activities: educating patient, discussing with wrapper caser/social workers/dc planners and documenting/other paperwork Coding Level of Care Code Acute Code for g Fwd Diagnoses Suicidal ideation R45.851 Benzodiazepine abuse F13.10 Polypharmacy Z79.899 Opioid use disorder, severe, on maintenance therapy, dependence F11.20 Generalized anxiety disorder F41.1 Depression F32.A
--- NOTE | 2024-12-31 08:39 | NUR.SHIFT ---
When pt was asked how she slept last night and she states, It was fine She rates her anxiety a 5/10 and depression 0/10. No reports of SI/Hi or hallucinations. No pain. She is calm and cooperative on assessment. She states that she has a 1pm court hearing today and we have let [facility] social work lecturer know. She is anticipating d/c today.
[2024-12-31 09:45] VITALS: BP 119/69; PULSE 94; RESP 16; O2SAT 99
== END 2024-12-31 09:58 | disposition home or self-care (01) | DRG 918 ==
LOC: ER 12:21 → NP 12:57
PROVIDERS: Admitting Provider Psychiatry & Neurology Psychiatry; Emergency Provider Family Medicine; Visit Provider Psychiatry & Neurology Psychiatry
DX: T42.4X2A Poisoning by benzodiazepines, intentional self-harm, initial encounter (principal); F23 Brief psychotic disorder; Z68.42 Body mass index [BMI] 45.0-49.9, adult; F11.20 Opioid dependence, uncomplicated; F32.A Depression, unspecified; F41.1 Generalized anxiety disorder; E66.01 Morbid (severe) obesity due to excess calories; F15.10 Other stimulant abuse, uncomplicated; F13.10 Sedative, hypnotic or anxiolytic abuse, uncomplicated; F17.210 Nicotine dependence, cigarettes, uncomplicated; Z86.19 Personal history of other infectious and parasitic diseases
CPT/HCPCS: 36415; 36600; 70450; 71045; 80051; 80053; 80306; 80307; 82330; 82805; 85025; 93005; 96372; 96374; 96375; 97150; 97165; 99285; J1200; J1630; J2060; J2312; J9999

== ENCOUNTER → 2025-01-08 14:58 | Outpatient (BNVA) | payer SELFPAY | PROVIDERS: Visit Provider Dermatology | DX: Z79.899 Other long term (current) drug therapy (principal) | CPT/HCPCS: 80061; 83036 ==

== ENCOUNTER 2025-01-18 06:22 | Emergency (ER) | payer SELFPAY ==
--- OUTSIDE RECORDS SUMMARY | 2013-07-14 03:37 | XMS_ITS | Continuity of Care Document ---
Author Organization ODNTA Fritz Address [address] [place] [address] Phone Care Team Providers Care Cable Rigger Name Role Phone Unavailable Unavailable Unavailable Procedures [...] Providers Copied on Encounter DONTA Fritz, [address], [place], [place], [address], tel:[phone] [facility] No Information 1 4 No Information Referring Provider: Shauna Arteaga MD, [address], [address]. tel:[phone] Offic/outpt E&m Estab Mod-hi 2 DONTA Fritz, [address], [place], [address], tel:[phone] [facility] No Information 7 [facility] Er[facility]. [address], [address], [address], [place]. tel:[phone] Referring Provider: Shauna Arteaga MD, [address], [address]. 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 [address], [address], [place]. tel:[phone] Referring Provider: Shauna Arteaga MD, [address], [address]. tel:[phone] Offic/outpt E&m Estab Mod-hi 2 Lam, [facility], [address] [facility] [address], [place], [address], [place] tel:[phone] [facility] No Information Renick CONTENT ADMINISTRATOR Erv. [address], [address], [place]. tel:[phone] Referring Provider: Shauna Arteaga MD, [address], [address]. tel:[phone] Offic/outpt E&m Estab Mod-hi 2 Lam, [facility], [address] [facility] [address], [place], [address], [place] tel:[phone] [facility] No Information Luciano Nunn. [address], [place], [address], [place]. tel:[phone] Referring Provider: Shauna Arteaga MD, [address], [address]. tel:[phone] Subsqt Hosp-da E&m Minr Compl Lam, [facility], [address], [place], [place], [address], [place] tel:[phone] [facility] - [facility] No Information 6 Tomshine Arline. [address], [address], [place], [address], [place]. tel:[phone] Referring Provider: Shauna Arteaga MD, [address], [address]. tel:[phone] Init Inpt Cons New/estab Mod 5 Lam, [facility], [address] [facility] [address], [place], [place], [address], [place] tel:[phone] [facility] - [place] No Information 6 Tomshine Arline. [address], [address], [place], [address], [place]. tel:[phone] Referring Provider: Shauna Arteaga MD, [address], [address]. tel:[phone] Family History Family Member Type Diagnosis Age At Onset No Information Payers Payer name Insurance type Covered democrat ID Shamika catalan(s) Medical Assistance [facility] [id number] Social History Type Description Quantity Date Captured [...]
[2025-01-18 06:23] VITALS: BP 166/106; PULSE 110; RESP 18; TEMP 36.9; O2SAT 97; BMI 36.6
--- NOTE | 2025-01-18 06:30 | ED_ITS ---
HPI - Dental/Oral General: Chief complaint: Dental/Oral Stated complaint: tooth ache Time Seen by Provider: 01/18/25 06:25 Source: patient Mode of arrival: ambulatory Limitations: no limitations History of Present Illness: 44-year-old female states she has a hist ory of poor dentition states she is having left lower dental pain over the last day. States pain sharp in nature rates it a 7 out of 10 she denies any difficulty talking or swallowing. Denies any fevers. Denies any worse improving factors Related Data Previous Rx's ?Medication ?Instructions ?Recorded clonidine HCl 0.1 mg tablet 0.3 mg (3 x 0.1 mg) PO BED TIME 30 12/23/24 days #90 tabs hydroxyzine pamoate 25 mg capsule 50 mg (2 x 25 mg) PO Q6H PRN 12/23/24 Anxiety 30 days #120 caps methadone 10 mg tablet 110 mg (11 x 10 mg) PO DAILY #1 tab 12/23/24 ziprasidone HCl 40 mg capsule 40 mg PO BID #60 caps (Geodon) cephalexin 500 mg capsule 500 mg PO TID 7 days #21 cap s 01/18/25 naproxen 500 mg tablet (Naprosyn) 500 mg PO BID PRN pa in #20 tabs 01/18/25 Allergies Allergy/AdvReac Type Severity Reaction Status Date / Time levofloxacin Allergy ALGY-Swell Verified 01/18/25 06:27 Lip/Tongue/Throat Review of Systems ENMT: Reports: dental pain [facility] ED PFSH: Medical History Generalized anxiety disorder Nicotine dependence, cigarettes, uncomplicated Benzodiazepine abuse Chronic post-traumatic stress disorder Opioid use disorder, severe, on maintenance therapy, dependence Managed by [facility] in [facility] Major depressive disorder, recurrent severe without psychotic features Psychiatric care Physical Exam Const: COMMON NORMALS: no acute distress, patient oriented x3 and healthy appearing HENMT: COMMON NORMALS: normocephalic and atraumatic HEAD & SCALP: normocephalic and atraumatic OTHER: Very poor dentition and multiple missing teeth has some tenderness over left lower molar no abscess no trismus Eye: COMMON NORMALS: conjunctivae normal CONJUNCTIVA: Yes conjunctivae normal Neck/C-Spine: COMMON NORMALS: full ROM and supple Chest: COMMONS NORMALS: normal inspection of the chest Resp: COMMON NORMALS: normal respiratory effort Cardio: COMMON NORMALS: regular rate RATE: regular rate Extremity: COMMON NORMALS: normal to inspection and full ROM Neuro: COMMON NORMALS: patient oriented x3, moves all extremities and no focal motor deficits Psych: COMMON NORMALS: mental status grossly normal, Normal thought process present and cooperative THOUGHT PROCESS: Normal thought process present Skin: COMMON NORMALS: no rashes or lesions noted and no wounds GENERAL SKIN EXAM: no rashes or lesions noted Course Vital Signs: Vital signs: Vital Signs Temperature 98.5 F 01/18/25 06:23 Pulse Rate 110 H 01/18/25 06:23 Respiratory Rate 18 01/18/25 06:23 Blood Pressure 166/106 01/18/25 06:23 Pulse Oximetry 97 01/18/25 06:23 Oxygen Delivery Me thod Room Air 01/18/25 06:23 MDM - Dental/Oral Medical Decision Making Patient presents for dental pain patient has very poor dentition here pain has been going on for 24 hours. She is afebrile she has no signs of dental abscess no trismus no signs of Robb angina. Will start her on Keflex along with Napro syn. I informed her she needs to follow-up with a dentist and went over all this with her she understands agrees to plan. Medical Records I reviewed the patient's medical records. No radiology studies performed this visit Discharge Plan Discharge Patient Disposition: Home Clinical Impression: Pain, dental Condition: Stable Prescriptions: New cephalexin 500 mg capsule 500 mg PO TID 7 Days Qty: 21 0RF naproxen [Naprosyn] 500 mg tablet 500 mg PO BID PRN (Reason: pain) Qty: 20 0RF No Action ziprasidone HCl [Geodon] 40 mg capsule 40 mg PO BID Qty: 60 3RF Rx Instructions: Take one capsule twice per day with 500 calories clonidine HCl 0.1 mg Tablet 0.3 mg PO BEDTIME 30 Days Qty: 90 1RF hydroxyzine pamoate 25 mg Capsule 50 mg PO Q6H PRN (Reason: Anxiety) 30 Days Qty: 120 1RF methadone 10 mg Tablet 110 mg PO DAILY Qty: 1 0RF Rx Instructions: will be given by [facility] Discharge Orders: Discharge ED (Routine); Ordered 01/18/25 Ordered By: Daniel Jewell Referrals: Pebbles Marlow DO [Primary Care Provider, Family Practice] Discharge Diet: Advance as tolerated Discharge Activity: Resume usual activity Patient Instructions: Toothache (ED) Print Language: Arabic Coding Level of Care Code ED Calibration Checker for Juan Antonio Felton
[2025-01-18] MEDS: HYDROcodone-acetaminophen 5-325 mg Tablet 1 TAB PO (06:36)
[2025-01-18 06:39] VITALS: BP 157/95; PULSE 98; RESP 16; O2SAT 99
== END 2025-01-18 06:40 | disposition home or self-care (01) ==
PROVIDERS: Emergency Provider Emergency Medicine; PCP Family Medicine
DX: K08.89 Other specified disorders of teeth and supporting structures (principal)
CPT/HCPCS: 99283; J9999

== ENCOUNTER 2025-03-04 12:33 | Emergency (ER) | payer MEDICAID, SELFPAY ==
[2025-03-04 12:39] VITALS: BP 171/79; PULSE 110; RESP 17; TEMP 36.7; O2SAT 100; BMI 36.6
--- NOTE | 2025-03-04 13:12 | W.ED.DENTAL ---
HPI - Dental/Oral General: Chief complaint: Dental/Oral Stated complaint: dental pain (2front teeth) Time Seen by Provider: 03/04/25 13:09 Source: patient Mode of arrival: ambulatory Limitations: no limitations History of Present Illness: 44-year-old female with history of poor dentition states that she had fractured off tooth #8 yesterday has been having pain. She denies any bleeding denies any fevers. States her pain is currently 6 out of 10 has not seen a dentist Related Data Home Medications ?Medication ?Instructions ?Recorded ?Confirmed methadone 10 mg tablet 90 mg PO DAILY 02/24/25 02/24/25 Previous Rx's ?Medication ?Instructions ?Recorded naproxen 500 mg tablet (Naprosyn) 500 mg PO BID PRN pain #20 tabs 01/18/25 cephalexin 500 mg capsule 500 mg PO TID 7 days #21 caps 03/04/25 tramadol 50 mg tablet 50 mg PO Q8H PRN pain #14 tabs 03/04/25 Allergies Allergy/AdvReac Type Severity Reaction Status Date / Time levofloxacin Allergy ALGY-Swell Verified 02/24/25 16:04 Lip/Tongue/Throat Review of Systems ENMT: Reports: dental pain [facility] ED PFSH: Medical History Generalized anxiety disorder Nicotine dependence, cigarettes, uncomplicated Benzodiazepine abuse Chronic post-traumatic stress disorder Opioid use disorder, severe, on maintenance therapy, dependence Managed by [facility] in [facility] Major depressive disorder, recurrent severe without psychotic features Psychiatric care Physical Exam Const: COMMON NORMALS: no acute distress, patient oriented x3 and healthy appearing HENMT: COMMON NORMALS: normocephalic and atraumatic HEAD & SCALP: normocephalic and atraumatic OTHER: Very poor dentition with multiple missing teeth no abscess or trismus does have tenderness over tooth #8 edges partially missing Eye: COMMON NORMALS: Equal, round and reactive pupils present and EOMs intact bilaterally PUPIL: Yes Equal, round and reactive pupils present Neck/C-Spine: COMMON NORMALS: full ROM and supple Chest: COMMONS NORMALS: normal inspection of the chest and normal palpation of entire chest wall Resp: COMMON NORMALS: normal respiratory effort Extremity: COMMON NORMALS: normal to inspection and full ROM Neuro: COMMON NORMALS: patient oriented x3, moves all extremities and no focal motor deficits Psych: COMMON NORMALS: mental status grossly normal, Normal thought process present and cooperative THOUGHT PROCESS: Normal thought process present Skin: COMMON NORMALS: no rashes or lesions noted and no wounds GENERAL SKIN EXAM: no rashes or lesions noted Course Vital Signs: Vital signs: Vital Signs Temperature 98.0 F 03/04/25 12:39 Pulse Rate 110 H 03/04/25 12:39 Respiratory Rate 17 03/04/25 12:39 Blood Pressure 171/79 03/04/25 12:39 Pulse Oximetry 100 03/04/25 12:39 Oxygen Delivery Me thod Room Air 03/04/25 12:39 MDM - Dental/Oral Medical Decision Making Patient presents for dental pain no signs of abscess or infection does have very poor dentition will start on Ultram along with Keflex she is to follow-up with dentist she understands agrees to plan. No radiology studies performed this visit Discharge Plan Discharge Patient Disposition: Home Clinical Impression: Toothache, Dental caries Condition: Stable Prescriptions: New cephalexin 500 mg capsule 500 mg PO TID 7 Days Qty: 21 0RF tramadol 50 mg tablet 50 mg PO Q8H PRN (Reason: pain) Qty: 14 0RF No Action methadone 10 mg tablet 90 mg PO DAILY Rx Instructions: Dispensed by [facility] clinic in [facility] naproxen [Naprosyn] 500 mg tablet 500 mg PO BID PRN (Reason: pain) Qty: 20 0RF Discharge Orders: Discharge ED (Routine); Ordered 03/04/25 Ordered By: Daniel Jewell Referrals: Pebbles Marlow DO [Primary Care Provider, Family Practice] Discharge Diet: Advance as tolerated Discharge Activity: Resume usual activity Patient Instructions: Toothache (ED) Print Language: Luxembourgish Coding Level of Care Code ED Contact Lens Inspector for Juan Antonio Felton
[2025-03-04 13:59] VITALS: BP 156/83; PULSE 118; RESP 18; O2SAT 99
--- OUTSIDE RECORDS SUMMARY | 2025-03-04 15:18 | XMS_ITS | Encounter Summary ---
Author Organization [facility] Address [address] [place] [address] Care Team Providers Care Table Cover Folder Name Role Phone Kelly Alva MD Primary Care Provider [phone] Reason for Visit * Reason Onset Date Comments Medication Refill 02/25/2025 Patient Communication Encounter Details Date Type Department Care Team (Late st Contact Info) Description 02/25/2025 Refill [facility] [place] [address] [phone] Kelly Alva MD [address] [phone] Chronic pain of right lower extremity Social History Tobacco Use Types Packs/Day Years Used Date Smoking Tobacco: Every Day Cigarettes 0.5 25.9 Started: 1999 Smokeless Tobacco: Never Alcohol Use Standard Drinks/Week Comments Not Currently 0 (1 standard drink = 0.6 oz pur e alcohol) Comments No Sex and Gender Information Value Date Recorded Sex Assigned at Not on file Legal Sex Female 11:29 AM CDT Gender Identity Not on file Sexual Orientation Not on file documented as of this encounter Miscellaneous Notes * Telephone Encounter - Domonique Pagan - 02/26/2025 9:38 AM CST Copied from [facility] #[id number]. Topic: CPA Information Request >> Feb 26, 2025 9:37 AM Domonique Sky wrote: Caller is returning phone call from clinic. Caller Name: Birgit Patient/Caregiver Callback Number: [phone] Clinic Left Note In Chart Is there a note from the clinic requesting the caller be transferred when they call back? No Are the credentials of the caregiver who called the patient gas prover? Yes Call Notes: Communicated information that is documented in the note. Caller does not want a call back from clinic. Patient was given the message about refills being at pharmacy. Also her phone is correct on file. P MATERIALS BUYER * Telephone Encounter - Adelaida Nelson LPN - 02/25/2025 1:58 PM CST 02/25/2025 1:58 PM Returned call. No answer. No voicemail or answering machine. Will continue to try to contact. If patient/caregiver calls back, contact center if patient calls back please get an updated phone number and also let her know she has refills at the pharmacy. Adelaida ESPINOSA P MATERIALS BUYER documented in this encounter Plan of Treatment Upcoming Encounters Date Type Department Care Team (Late st Contact Info) Description 08/06/2025 8:00 AM CDT Office Visit [facility] [address] [phone] Kelly Alva MD [address] [phone] documented as of this encounter Visit Diagnoses Diagnosis Chronic pain of right lower extremity documented in this encounter Care Teams Table Cover Folder Relationship Specialty Start Date End Date Kelly Alva MD [address] [phone] PCP - General Family Practice 02/05/25 documented as of this encounter
--- OUTSIDE RECORDS SUMMARY | 2025-03-04 15:18 | XMS_ITS | Encounter Summary ---
Author Organization [facility] Address [address] [place] [address] Care Team Providers Care Photoradio Operator Name Role Phone Kelly Alva MD Primary Care Provider +1- [phone] Reason for Visit * Reason Onset Date Comments Medication Refill 03/02/2025 Patient Communication Encounter Details Date Type Department Care Team (Late st Contact Info) Description 03/02/2025 Refill [facility] Medicine [place] [address] [phone] Kelly Alva MD [address] [phone] Mild episode of recurrent major depressive disorder; Attention deficit hyperactivity disorder (ADHD), combined type; Generalized anxiety disorder Social History Tobacco Use Types Packs/Day Years [...] encounter Miscellaneous Notes * Telephone Encounter - Marry Reid RN - 03/03/2025 9:17 AM CST 03/03/2025 9:17 AM Quitbit message sent Marry ZHENG OL LUNCH MANAGER * Telephone Encounter - Supa Casarez - 03/03/2025 9:01 AM CST Copied from [facility] #[id number]. Topic: CPA Information Request >> Mar 03, 2025 9:00 AM Supa Sky wrote: Caller is returning phone call from clinic. Caller Name: Birgit Szymanski Patient/Caregiver Callback Number: [phone] (mobile) Patient Has Additional Questions Patient calling to f/u on this. She states that her phone is having issues receiving calls. Patientattempted to schedule appt, but no availability until March. She is requesting a call back. OL LUNCH MANAGER documented in this encounter Plan of Treatment Upcoming Encounters Date Type Department Care Team (Late st Contact Info) Description 08/06/2025 8:00 AM CDT Office Visit [address] [phone] Kelly Alva MD [address] [phone] documented as of this encounter Visit Diagnoses Diagnosis Mild episode of recurrent major depressive disorder Attention deficit hyperactivity disorder (ADHD), combined type Generalized anxiety disorder documented in this encounter Care Teams Photoradio Operator Relationship Specialty Start Date End Date Kelly Alva MD [address] [phone] PCP - General Family Practice 02/05/25 documented as of this encounter
--- OUTSIDE RECORDS SUMMARY | 2025-03-04 15:18 | XMS_ITS | Encounter Summary ---
Author Organization [facility] Address [address] [place] [address] Care Team Providers Care Surgical Nurse Name Role Phone Kelly Alva MD Primary Care Provider +1- [phone] Reason for Visit * Reason Comments Patient Communication Encounter Details Date Type Department Care Team (Late st Contact Info) Description 03/04/2025 Telephone [facility] Family Medicine [address] [phone] Kelly Alva MD [address] [phone] Patient Communication Social History Tobacco Use Types Packs/Day Years [...] encounter Miscellaneous Notes * Telephone Encounter - Linnette Juárez - 03/04/2025 10:28 AM CST Copied from [facility] #[id number]. Topic: CPA Information Request >> Mar 04, 2025 10:27 AM Linnette Joaquin wrote: Caller is returning phone call from clinic. Caller Name: Birgit Szymanski Patient/Caregiver Callback Number: Telephone Information: Clinic Left Note In Chart Is there a note from the clinic requesting the caller be transferred when they call back? Yes - note is for COMMERCIAL FINANCE ANALYST Call Notes: Note indicated caller should be transferred to clinic when they called back. Transferred to Backline/COMMERCIAL FINANCE ANALYST Line and Annabel answered call. PULLER documented in this encounter Plan of Treatment Upcoming Encounters Date Type Department Care Team (Late st Contact Info) Description 08/06/2025 8:00 AM CDT Office Visit [address] [phone] Kelly Alva MD [address] [phone] documented as of this encounter Visit Diagnoses Not on filedocumented in this encounter Care Teams Surgical Nurse Relationship Specialty Start Date End Date Kelly Alva MD [address] [place] [phone] PCP - General Family Practice 02/05/25 documented as of this encounter
--- OUTSIDE RECORDS SUMMARY | 2025-03-04 15:18 | XMS_ITS | Encounter Summary ---
Author Organization [facility] Address [address] [place] [address] Care Team Providers Care Trouble Shooting Mechanic Name Role Phone Kelly Alva MD Primary Care Provider +1- [phone] Reason for Visit * Reason Onset Date Comments Medication Refill 02/24/2025 Remote Monitoring Encounter Details Date Type Department Care Team (Late st Contact Info) Description 02/24/2025 Refill [facility] [address] [phone] Kelly Alva MD [address] [phone] Mild episode of recurrent major depressive disorder (Primary Dx); Attention deficit hyperactivity disorder (ADHD), combined type; [...] encounter Miscellaneous Notes * Telephone Encounter - Adelaida Nelson FRANCISCA Antunez - 02/25/2025 9:07 AM CST Unable to reach patient called number and it states that it has been changed. Medication Refill Request Last Fill Date:xanax unknown; adderall unknown; clonidine unknown; ambien unknown; hydroxyzine unknown Recent and Future Visits: Recent Visits Date Type Provider Dept 02/05/25 Office Visit Kelly Alva MD [facility] Showing recent visits within past 540 days with a meds authorizing provider and meeting all other requirements Future Appointments Date Type Provider Dept 08/06/25 Appointment Kelly Alva MD [facility] Showing future appointments within next 365 days with a meds authorizing provider and meeting all other requirements H ASSEMBLER ELECTRICAL * Telephone Encounter - Debbie Alva - 02/25/2025 9:01 AM CST Copied from [facility] #[id number]. Topic: Patient Reported Outcome Metrics >> Feb 25, 2025 8:55 AM Debbie Gonzalez wrote: Caller Name: Birgit Szymanski Call Notes: Pt is asking if medical records have been received? She is almost out of medication andneeding refills. Requesting call back to discuss medication that was given to her and she has some other medication questions. H ASSEMBLER ELECTRICAL * Telephone Encounter - Asmita Villegas - 02/24/2025 10:09 AM CST She would like a call when refills are done. She has been out of everything since Sunday. H ASSEMBLER ELECTRICAL documented in this encounter Plan of Treatment Upcoming Encounters Date Type Department Care Team (Late st Contact Info) Description 08/06/2025 8:00 AM CDT Office Visit [facility] [address] [phone] Kelly Alva MD [address] [phone] documented as of this encounter Visit Diagnoses Diagnosis Mild episode of recurrent major depressive disorder- Primary Attention deficit hyperactivity disorder (ADHD), combined type Generalized anxiety disorder documented in this encounter Care Teams Trouble Shooting Mechanic Relationship Specialty Start Date End Date Kelly Alva MD [address] [phone] PCP - General Family Practice 02/05/25 documented as of this encounter
--- OUTSIDE RECORDS SUMMARY | 2025-03-04 15:18 | XMS_ITS | Clinical Summary ---
Author Organization [facility] Aleksander monroe [facility] Address [address] [place] [address] Phone Care Team Providers Care Delivery Department Supervisor Name Role Phone Kelly Alva MD Primary Care Provider +1- [phone] Allergies Active Allergy Reactions Criticality Noted Date Comments Levofloxacin Anaphylaxis High 02/05/2025 Medications gabapentin (NEURONTIN) 800 mg tabletIndications :Chronic pain of right lower extremity Take 1 Tablet (800 mg) by mouth 3 times daily. 270 Tablet 3 5 Active Methadone (DOLOPHINE) 40 mg Tablet, Soluble Take 110 mg by mouth daily. Active ALPRAZolam (XANAX) 0.5 mg tabletIndications :Mild episode of recurrent major depressive disorder,Attentio n deficit hyperactivity disorder (ADHD), combined type,Generalized anxiety disorder Take 1 Tablet (0.5 mg) by mouth 3 times daily as needed for Anxiety. 90 Tablet 5 5 Active amphetamine-dextr oamphetamine (ADDERALL XR) 30 mg Extended Release 24 hour capsuleIndication s:Mild episode of recurrent major depressive disorder,Attentio n deficit hyperactivity disorder (ADHD), combined type,Generalized anxiety disorder Take 1 Capsule (30 mg) by mouth daily. Max Daily Amount: 30 mg 30 Capsule 5 Active cloNIDine HCL (CATAPRES) 0.3 mg tabletIndications :Mild episode of recurrent major depressive disorder,Attentio n deficit hyperactivity disorder (ADHD), combined type Take 1 Tablet (0.3 mg) by mouth daily at bedtime. 90 Tablet 3 5 Active DULoxetine (CYMBALTA) 60 mg Capsule, Delayed Release(E.C.)Amarilis cations:Mild episode of recurrent major depressive disorder,Attentio n deficit hyperactivity disorder (ADHD), combined type,Generalized anxiety disorder Take 1 Capsule (60 mg) by mouth 2 times daily. 180 Capsule 3 5 Active zolpidem (AMBIEN) 10 mg tabletIndications :Mild episode of recurrent major depressive disorder,Attentio n deficit hyperactivity disorder (ADHD), combined type,Generalized anxiety disorder Take 1 Tablet (10 mg) by mouth nightly as needed for Insomnia. 90 Tablet 1 5 Active hydrOXYzine HCL (ATARAX) 50 mg tabletIndications :Mild episode of recurrent major depressive disorder Take 1 Tablet (50 mg) by mouth nightly as needed for Anxiety. 90 Tablet 3 5 Active amphetamine-dextr oamphetamine (ADDERALL XR) 30 mg Extended Release 24 hour capsule Take 30 mg by mouth daily. 02/25/20 Discontinu ed(Reorder ) ALPRAZolam (XANAX) 0.5 mg tablet Take 0.5 mg by mouth 3 times daily as needed for Anxiety. 02/25/20 Discontinu ed(Reorder ) zolpidem (AMBIEN) 10 mg tablet Take 10 mg by mouth nightly as needed for Insomnia. 02/25/20 Discontinu ed(Reorder ) hydrOXYzine HCL (ATARAX) 50 mg tablet Take 50 mg by mouth nightly as needed for Anxiety. 02/25/20 Discontinu ed(Reorder ) DULoxetine (CYMBALTA) 60 mg Capsule, Delayed Release(E.C.) Take 60 mg by mouth 2 times daily. 02/25/20 Discontinu ed(Reorder ) cloNIDine HCL (CATAPRES) 0.3 mg tablet Take 0.3 mg by mouth daily at bedtime. 02/25/20 Discontinu ed(Reorder ) gabapentin 800 mg tablet (NEURONTIN) Take 1 Tablet by mouth 3 times daily. 02/06/20 Discontinu ed(Reorder ) Active Problems Problem Noted Date Diagnosed Date Chronic pain of right lower extremity 02/05/2025 Attention deficit hyperactiv ity disorder (ADHD), combined type 02/05/2025 Primary insomnia 02/05/2025 Generalized anxiety disorder 02/05/2025 Major depression 02/05/2025 History of heroin abuse 02/05/2025 Total Hysterectomy 02/05/2025 Encounters Date Type Department Care Team Description 03/04/[address] [phone] Kelly Alva MD Patient Communication 03/04/[address] [phone] Kelly Alva MD Mild episode of recurrent major depressive disorder; Attention deficit hyperactivity disorder (ADHD), combined type; Generalized anxiety disorder 03/02/[address] [phone] Kelly Alva MD Mild episode of recurrent major depressive disorder; Attention deficit hyperactivity disorder (ADHD), combined type; Generalized anxiety disorder 02/26/[address] [phone] Kelly Alva MD Provider Call 02/25/[address] [phone] Kelly Alva MD Chronic pain of right lower extremity 02/25/[address] [phone] Kelly Alva MD 02/25/[address] [phone] Kelly Alva MD Provider Call 02/24/[address] [phone] Kelly Alva MD Mild episode of recurrent major depressive disorder (Primary Dx); Attention deficit hyperactivity disorder (ADHD), combined type; Generalized anxiety disorder 02/17/2025 External Device Data STL ABSTRACTION Provider, Abstract 02/11/2025 External Device Data [place] ABSTRACTION Provider, Abstract 02/11/2025 External Device Data ST[place] ABSTRACTION Provider, Abstract 02/10/2025 External Device Data ST[place] ABSTRACTION Provider, Abstract 02/10/2025 External Device Data ST[place] ABSTRACTION Provider, Abstract 02/10/2025 Results Follow-Up [address] [phone] Kelly Alva MD MEDICATION COMPLIANCE DRUG SCREEN 02/06/[address] [phone] Kelly Alva MD Attention deficit hyperactivity disorder (ADHD), combined type (Primary Dx) 02/05/2025 1:00 PM CDT Office Visit [address] [phone] Kelly Alva MD Attention deficit hyperactivity disorder (ADHD), combined type (Primary Dx); Swelling of joint of left knee; Chronic pain of right lower extremity; Mild episode of recurrent major depressive disorder; Generalized anxiety disorder; Primary insomnia; Screening mammogram, encounter for; History of heroin abuse ([facility]); Total Hysterectomy; Refused influenza vaccine from Last 3 Months Social History Tobacco Use Types Packs/Day Years Used Date Smoking Tobacco: Every Day Cigarettes 0.5 25.9 Started: 1999 Smokeless Tobacco: Never Tobacco Cessation:Ready to Q uit: Not Asked; Counseling Given: Not Answered Alcohol Use Standard Drinks/Week Comments Not Currently 0 (1 standard drink = 0.6 oz pur e alcohol) Comments No Sex and Gender Information Value Date Recorded Sex Assigned at Not on file Legal Sex Female 11:29 AM CDT Gender Identity Not on file Sexual Orientation Not on file Last Filed Vital Signs Vital Sign Reading Time Taken Comments Blood Pressure 138/88 02/05/2025 1:30 PM CDT Pulse 115 02/05/2025 1:30 PM CDT Temperature 36.5 C (97.7 F) 02/05/2025 1:30 PM CDT Respiratory Rate 18 02/05/2025 1:30 PM CDT Oxygen Saturation 98% 02/05/2025 1:30 PM CDT Inhaled Oxygen Concentration - - Weight 100 kg (220 lb 6.4 oz) 02/05/2025 1:30 PM CDT Height 157.5 cm (5' 2 ) 02/05/2025 1:30 PM CDT Body Mass Index 40.31 02/05/2025 1:30 PM CDT Plan of Treatment Upcoming Encounters Date Type Department Care Team (Late st Contact Info) Description 08/06/2025 8:00 AM CDT Office Visit [facility] [address] [phone] Kelly Alva MD [address] [phone] Health Maintenance Due Date Last Done Comments Pre-Diabetes and Diabetes Screening 1978 DTAP/TDAP/TD VACCINES (1 - Tdap) 1997 HEPATITIS B VACCINES (1 of 3 - 19+ 3-dose series) 1997 Preventative Visit-Managed Medicaid 1997 BREAST CANCER SCREENING 2018 COLORECTAL SCREENING 2023 FIT-DNA Q 3 years 2023 FIT/FOBT Q 1 year 2023 Flex Sig/CT Colonography Q 5 years 2023 INFLUENZA VACCINE (#1) 2024 Colorectal Cancer Screening 02/05/2026 Postponed from 2023 (Patient Refused) HPV VACCINES Aged Out No longer eligi ble based on patient's age to complete this topic Procedures Procedure Name Priority Date/Time Associated Diagnosis Comments MEDICATION COMPLIANCE DRUG SCREEN Routine 02/05/2025 1:54 PM CDT Attention deficit hyperactivity disorder (ADHD), combined type from Last 3 Months Results * (ABNORMAL) MEDICATION COMPLIANCE DRUG SCREEN (02/05/2025 1:54 PM CDT) Summary [facility] Comment: Prescribed Prescribed Not Prescribed Consistent Inconsistent Inconsistent Adderall(TM) Gabapentin Ambien(TM) Methadone Xanax(TM) Prescribed Drug 1 Adderall(TM) [facility] Prescribed Drug 2 Xanax(TM) [facility] Pres[facility] Drug 3 Gabapentin [facility] Prescribed Drug 4 Methadone [facility] Prescribed Drug 5 Ambien(TM) [facility] BUPRENORPHINE (URINE) NEGATIVE <5 ng/mL [facility] Fentanyl NEGATIVE <0.5 ng/mL [facility] Propoxyphene, Urine NEGATIVE <300 ng/mL [facility] MDA (Ecstasy Mtb), Urine NEGATIVE <200 ng/mL [facility] MDMA (Ecstasy), Urine NEGATIVE <200 ng/mL [facility] MDMA Comments [facility] Comment:See LDT Notes Meprobamate, Urine NEGATIVE <1000 ng/mL [facility] Carisoprodol Comments [facility] Comment:See LDT Notes Tapentadol, Urine NEGATIVE <50 ng/mL [facility] Nortapentadol, Urine NEGATIVE <50 ng/mL [facility] Tapentadol Comments [facility] Comment:See LDT Notes O-Desmethyltramado l, Urine NEGATIVE <100 ng/mL [facility] Tramadol, Urine NEGATIVE <100 ng/mL [facility] Tramadol Comments Qu SWYF [facility] Comment:See LDT Notes Gabapentin, Urine NEGATIVE <1000 ng/mL [facility] medMATCH Gabapentin, Urine INCONSISTENT( A) [facility] Gabapentin Comments [facility] Comment:See LDT Notes Meperidine, Urine NEGATIVE <100 ng/mL [facility] Normeperidine, Urine NEGATIVE <100 ng/mL [facility] Meperidine Comments [facility] Comment:See LDT Notes PREGABALIN, QUANT URINE NEGATIVE <1000 ng/mL [facility] Pregabalin Comments [facility] Comment:See LDT Notes Alcohol Metabolites, Urine NEGATIVE <500 ng/mL [facility] AMPHETAMINES (URINE) POSITIVE(A) <500 ng/mL [facility] Amphetamine, Urine >90739(H) <250 ng/mL [facility] medMATCH Amphetamines, Urine CONSISTENT [facility] Methamphetamine, Urine NEGATIVE <250 ng/mL [facility] Amphetamines Comments [facility] Comment:See Amphetamines Not es, LDT Notes BARBITURATES (URINE) NEGATIVE <300 ng/mL [facility] BENZODIAZEPINES (URINE) POSITIVE(A) <100 ng/mL [facility] Alpha-hydroxyalpra zolam, Urine 377(H) <25 ng/mL [facility] medMATCH aOH alprazolam, Urine CONSISTENT [facility] ALPHA-HYDROXYMIDAZ OLAM QUANT, URINE NEGATIVE <50 ng/mL [facility] Alpha-Hydroxytriaz olam, Urine NEGATIVE <50 ng/mL [facility] Aminoclonazepam, Urine NEGATIVE <25 ng/mL [facility] Hydroxyethylfluraz epam, Urine NEGATIVE <50 ng/mL [facility] Lorazepam, Urine NEGATIVE <50 ng/mL [facility] NORDIAZEPAM QUANT, URINE NEGATIVE <50 ng/mL [facility] Oxazepam, Urine NEGATIVE <50 ng/mL [facility] Temazepam, Urine NEGATIVE <50 ng/mL [facility] BENZODIAZEPINES, COMMENT [facility] Comment:See Benzodiazepines Notes, LDT Notes COCAINE & METABOLITE (URINE) NEGATIVE <150 ng/mL [facility] 6 ACETYLMORPHINE, URINE NEGATIVE <10 ng/mL [facility] CANNABINOIDS QUAL, URINE NEGATIVE <20 ng/mL [facility] Methadone Metabolite, Urine POSITIVE(A) <100 ng/mL [facility] EDDP (Methadone Mtb), Urine >42229(H) <100 ng/mL [facility] medMATCH EDDP, Urine CONSISTENT [facility] METHADONE (URINE) >96719(H) <100 ng/mL [facility] medMATCH Methadone, Urine CONSISTENT [facility] METHADONE, COMMENT [facility] Comment:See Methadone Notes, LDT Notes OPIATE CLASS (URINE) NEGATIVE <100 ng/mL [facility] OXYCODONE CLASS (URINE) NEGATIVE <100 ng/mL [facility] PHENCYCLIDINE, URINE NEGATIVE <25 ng/mL [facility] Creatinine, Urine 136.6 > or = 20.0 mg/dL [facility] PH 5.2 4.5 - 9.0 [facility] OXIDANT, URINE NEGATIVE <200 mcg/mL [facility] ZOLPIDEM, URINE 15(H) <5 ng/mL [facility] medMATCH Zolpidem CONSISTENT Q uest [facility] Zolipidem Metabolite, Urine >2500(H) <5 ng/mL [facility] medMATCH Zolpidem Metab CONSISTENT [facility] Zolpidem Comments Qu est [facility] Comment:See Zolpidem Notes, LDT Notes COMMENT TOXICOLOGY Q uest [facility] Comment: This drug testing is for medical treatment only. Analysis was performed as non-forensic testing and these results should be used only by healthcare providers to render diagnosis or treatment, or to monitor progress of medical conditions. Amphetamines Notes: Amphetamine detected is consistent with the use of the drug Amphetamine. Amphetamine can be a prescribed drug and is also a metabolite of methamphetamine. Benzodiazepines Notes: aOH Alprazolam detected is consistent with the use of the drug Alprazolam. Methadone Notes: Methadone, EDDP detected is consistent with the use of the drug Methadone. Zolpidem Notes: Zolpidem, Zolpidem Metabolite detected is consistent with the use of the drug Zolpidem. LDT Notes: Confirmation tests were developed and their analytical performance characteristics have been determined by [employer]. It has not been cleared or approved by the FDA. This assay has been validated pursuant to the CLIA regulations and is used for clinical purposes. medMATCH(R) enables providers to identify if drug use is consistent or inconsistent with a corresponding prescribed medication(s) list. Healthcare Providers needing Interpretation assistance, please contact us at [phone] ( ) M-F, 8am to 10pm EST Test Performed at: [facility] [address] [facility] SE[facility] Urine URINE SPECIMEN OBTAINED BY CLEAN CATCH PROCEDURE / Unknown 02/05/2025 1:54 PM CDT 02/06/2025 4:24 AM CDT us Kelly Alva MD URINE ORDERABLES Final Res ult [facility] [phone] [facility] [address] [facility], [place] [address] from Last 3 Months Insurance [facility] [employer] Care Teams Delivery Department Supervisor Relationship Specialty Start Date End Date Kelly Alva MD [address] [phone] PCP - General Family Practice 02/05/25
--- OUTSIDE RECORDS SUMMARY | 2025-03-04 15:18 | XMS_ITS | Encounter Summary ---
Author Organization [facility] Address [address] [place] [address] Care Team Providers Care Ship Surveyor Name Role Phone Kelly Alva MD Primary Care Provider +1- [phone] Encounter Details Date Type Department Care Team (Late st Contact Info) Description 02/10/2025 Results Follow-Up [address] [phone] Kelly Alva MD [address] [place] [phone] MEDICATION COMPLIANCE DRUG SCREEN Social History Tobacco Use Types Packs/Day Years [...] as of this encounter Miscellaneous Notes * Result Encounter Note - Kelly Alva MD - 02/10/2025 3:13 PM CDT UDS is appropriate but waiting on records documented in this encounter Plan of Treatment Upcoming Encounters Date Type Department Care Team (Late st Contact Info) Description 08/06/2025 8:00 AM CDT Office Visit [address] [phone] Kelly Alva MD [address] [phone] documented as of this encounter Visit Diagnoses Not on filedocumented in this encounter Care Teams Ship Surveyor Relationship Specialty Start Date End Date Kelly Alva MD [address] [phone] PCP - General Family Practice 02/05/25 documented as of this encounter
--- OUTSIDE RECORDS SUMMARY | 2025-03-04 15:18 | XMS_ITS | Encounter Summary ---
Author Organization [facility] Address [address] [place] [address] Care Team Providers Care Sports Therapist Name Role Phone Kelly Alva MD Primary Care Provider +1- [phone] Reason for Visit * Reason Comments Provider Call Encounter Details Date Type Department Care Team (Late st Contact Info) Description 02/25/2025 Telephone [facility] Medicine [address] [phone] Kelly Alva MD [address] [phone] Provider Call Social History Tobacco Use Types Packs/Day Years [...] encounter Miscellaneous Notes * Telephone Encounter - Olive Anderson LPN - 02/25/2025 12:39 PM CST Noted. NESS SUPPORT ASSOCIATE * Telephone Encounter - Winston Altamirano - 02/25/2025 9:43 AM CST Copied from [facility] #[id number]. Topic: [id number] Call >> Feb 25, 2025 9:40 AM Winston Maddox wrote: Caller is requesting to speak with Clinical Care Team. Caller Name: Dandre Dodge [facility] Callback Number: [phone] Is the caller a Physician, Nurse Practitioner or Physician Artist Suspect? No Call Notes: Gave Fax number. Dandre will be faxing of request forms to this office. Is this addressing an immediate patient care need? No NESS SUPPORT ASSOCIATE documented in this encounter Plan of Treatment Upcoming Encounters Date Type Department Care Team (Late st Contact Info) Description 08/06/2025 8:00 AM CDT Office Visit [address] [phone] Kelly Alva MD [address] [phone] documented as of this encounter Visit Diagnoses Not on filedocumented in this encounter Care Teams Sports Therapist Relationship Specialty Start Date End Date Kelly Alva MD [address] [phone] PCP - General Family Practice 02/05/25 documented as of this encounter
--- OUTSIDE RECORDS SUMMARY | 2025-03-04 15:18 | XMS_ITS | Encounter Summary ---
Author Organization [facility] Address [address] [place] [address] Care Team Providers Care Air Quality Technician Name Role Phone Kelly Alva MD Primary Care Provider +1- [phone] Encounter Details Date Type Department Care Team (Late st Contact Info) Description 02/25/[address] [phone] Kelly Alva MD [address] [place] [phone] Social History Tobacco Use Types Packs/Day Years [...] on file documented as of this encounter Plan of Treatment Upcoming Encounters Date Type Department Care Team (Late st Contact Info) Description 08/06/2025 8:00 AM CDT Office Visit [address] [phone] Kelyl Alva MD [address] [place] [phone] documented as of this encounter Visit Diagnoses Not on filedocumented in this encounter Care Teams Air Quality Technician Relationship Specialty Start Date End Date Kelly Alva MD [address] [place] [phone] PCP - General Family Practice 02/05/25 documented as of this encounter
--- OUTSIDE RECORDS SUMMARY | 2025-03-04 15:18 | XMS_ITS | Encounter Summary ---
Author Organization [facility] Address [address] [place] [address] Care Team Providers Care Wage And Hour Investigator Name Role Phone Kelly Alva MD Primary Care Provider +1- [phone] Reason for Visit * Reason Comments Provider Call Encounter Details Date Type Department Care Team (Late st Contact Info) Description 02/26/2025 Telephone [facility] Family Medicine [address] [phone] Kelly Alva MD [address] [phone] Provider Call Social History Tobacco [...] Telephone Encounter - Marry Reid RN - 02/26/2025 2:01 PM CST 02/26/2025 2:01 PM Returned call and spoke with Lina. Discussed that we just started seeing her and that we did just send in medications for her yesterday. They were concerned because she didn't mention these medications when she went through their intake dept. They will continue to monitor her for now but wanted usto be aware so we can watch her medications. Marry ZHENG ATRONICS TECHNICIAN * Telephone Encounter - Domonique Pagan - 02/26/2025 1:54 PM CST Copied from [facility] #[id number]. Topic: [id number] Call >> Feb 26, 2025 1:44 PM Domonique Asya wrote: Caller is requesting to speak with Clinical Care Team. Caller Name: [facility]/ [facility] [place]. Callback Number: [phone] ext [phone] Is the caller a Physician, Nurse Practitioner or Physician Machinist Wood? No Call Notes: reporting patient was seen in their clinic on 02/24/25. Patient requested a refill on Clodine 0.1 mg 3 at bedtime and Geodon 60 mg 2 per day. She failed to inform them she was taking Ambien, Xanax and Methadone. Patient was asking for another strong ADHD medication but was denied. Patient was also asking for assistance with paying for these medications. Is this addressing an immediate patient care need? No ATRONICS TECHNICIAN documented in this encounter Plan of Treatment Upcoming Encounters Date Type Department Care Team (Late st Contact Info) Description 08/06/2025 8:00 AM CDT Office Visit [facility] [address] [phone] Kelly Alva MD [address] [phone] documented as of this encounter Visit Diagnoses Not on filedocumented in this encounter Care Teams Wage And Hour Investigator Relationship Specialty Start Date End Date Kelly Alva MD [address] [phone] PCP - General Family Practice 02/05/25 documented as of this encounter
--- OUTSIDE RECORDS SUMMARY | 2025-03-04 15:18 | XMS_ITS | Encounter Summary ---
Author Organization [facility] Address [address] [place] [address] Care Team Providers Care Triage Technician Name Role Phone Kelly Alva MD Primary Care Provider [phone]- [phone] Reason for Visit * Reason Onset Date Comments Pharmacy Change 03/04/2025 Medication Refill 03/04/2025 almost out of medication 03/04/2025 Different Dosage 03/04/2025 Encounter Details Date Type Department Care Team (Late st Contact Info) Description 03/04/2025 Refill [facility] Medicine [address] [phone] Kelly Alva MD [address] [phone] Mild episode of recurrent major [...] encounter Miscellaneous Notes * Telephone Encounter - Elda Parada - 03/04/2025 9:51 AM CST 03/04/2025 9:51 AM Reached out to pt and number has been disconnected. Need working home phone number. Sent Ricky dunn back to pt second time that pt needs to update her home telephone number. Attempting to verify pharmacy. [facility] msg received by Pt: Yes I need my Adderall 2times daily not 1. I'm going to be out next Sunday, and I am supposed to be onn dextroamphetamine 10mg 2times daily. My pharmacy was [facility] in [place] and the number is [phone] Last appt:02/05/25 Next appt:08/06/2025 Dr Alva, can you look at this refill request please. 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 documented in this encounter Plan of Treatment Upcoming Encounters Date Type Department Care Team (Late st Contact Info) Description 08/06/2025 8:00 AM CDT Office Visit [facility] [address] [phone] Kelly Alva MD [address] [phone] documented as of this encounter Visit Diagnoses Diagnosis Mild episode of recurrent major depressive disorder Attention deficit hyperactivity disorder (ADHD), combined type Generalized anxiety disorder documented in this encounter Care Teams Triage Technician Relationship Specialty Start Date End Date Kelly Alva MD [address] [place] [phone] PCP - General Family Practice 02/05/25 documented as of this encounter
== END 2025-03-04 13:30 | disposition home or self-care (01) ==
PROVIDERS: Emergency Provider Emergency Medicine; PCP Family Medicine
DX: K08.89 Other specified disorders of teeth and supporting structures (principal); K02.9 Dental caries, unspecified
CPT/HCPCS: 99283; J9999